=== PATIENT | female | born 1990 | race Caucasian/White ===

== ENCOUNTER 2021-06-18 12:01 | Emergency (ER) | payer OTHER ==
[~2021-06-18 12:01] MED LIST: BACLOFEN 10MG T10 MG PO; CYCLOBENZAPRINE10 MG PO; KEFLEX250 MG PO; MOTRIN600 MG PO; NAPROXEN500 MG PO; PREDNISONE 20MG20 MG PO
== END 2021-06-18 18:00 | disposition left against medical advice (07) ==
LOC: FER 12:01
DX: R07.9 Chest pain, unspecified (principal); Z53.8 Procedure and treatment not carried out for other reasons
CPT/HCPCS: 93005